=== PATIENT | male | born 1935 | race Caucasian/White ===

== ENCOUNTER → 2018-09-27 | Day surgery (SDC) | payer OTHER ==
[~2018-09-27] MED LIST: ASA81 MG PO; LAXATIVE FEMININ5 MG PO; LOSARTAN-HCTZ1 EAC1 PO
== END | disposition home or self-care (01) ==
LOC: ADM 09-11 07:15 → CIR.AMB 05:25
DX: H62.42 Otitis externa in other diseases classified elsewhere, left ear (principal); L72.0 Epidermal cyst; Q16.1 Congenital absence, atresia and stricture of auditory canal (external); H61.302 Acquired stenosis of left external ear canal, unspecified